=== PATIENT | female | born 1960 | race Caucasian/White ===

== ENCOUNTER 2017-09-08 11:57 | Emergency (ER) | payer SELFPAY ==
--- NOTE | 2017-09-08 12:08 | EDM.PDOCBH ---
ED HPI GENERAL MEDICAL PROBLEM - General Chief Complaint: Behavioral/Psych Stated Complaint: SUICIDAL Time Seen by Provider: 09/08/17 12:01 Source of Information: Reports: Patient, EMS - History of Present Illness INITIAL COMMENTS - FREE TEXT/NARRATIVE: HISTORY AND PHYSICAL: History of present illness: [Nadine is a 56-year-old female arrived to the ED via EMS here for suicidal thoughts. She reports she was on the train from [place] to [place] when she told someone on the train 2 hours ago that she was having a lot of anxiety and depression. She reportedly told the EMS she wanted to jump in front of the train. Patient reported to me that she does not want to live. She has had past suicidal attempts including overdose and cutting. She states she was in [place] at a [facility] treatment facility for her anxiety and depression. She states she was taken off of all of her medications and was being transferred to a treatment facility in [place]. This along with her not wanting to go to [place] is what she reports triggered her suicidal thoughts. She states she has no family support at this time, her mom and brother live near [place], [place]. She denies any chest pain/pressure, abdominal pain, headache, dizziness, dyspnea.] Review of systems: As per history of present illness and below otherwise all systems reviewed and negative. Past medical history: As per history of present illness and as reviewed below otherwise noncontributory. Surgical history: As per history of present illness and as reviewed below otherwise noncontributory. Social history: No reported history of drug or alcohol abuse. Family history: As per history of present illness and as reviewed below otherwise noncontributory. Physical exam: General: patient is tearful HEENT: Atraumatic, normocephalic, pupils reactive, negative for conjunctival pallor or scleral icterus, mucous membranes moist, throat clear, neck supple, nontender, trachea midline. Lungs: Clear to auscultation, breath sounds equal bilaterally, chest nontender. Heart: S1S2, regular, negative for clicks, rubs, or JVD. Abdomen: Soft, nondistended, nontender. Negative for masses or hepatosplenomegaly. Negative for costovertebral tenderness. Pelvis: Stable nontender. Genitourinary: Deferred. Rectal: Deferred. Extremities: Atraumatic, negative for cords or calf pain. Neurovascular unremarkable. Neuro: Awake, alert, oriented. Cranial nerves II through XII unremarkable. Cerebellum unremarkable. Motor and sensory unremarkable throughout. Exam nonfocal. Notes: Consulted with Dr. Murillo, psych, in [place]. Patient accepted for inpatient psych evaluation. Diagnostics: [CBC, CMP, UA, urine hCG, urine drug screen, ] Therapeutics: [Tylenol] Impression: [Suicidal ideation with a plan] Plan: [Patient transferred via ground ambulance to [facility].] Definitive disposition and diagnosis as appropriate pending reevaluation and review of above. Onset: Today ED ROS GENERAL - Review of Systems Review Of Systems: ROS reveals no pertinent complaints other than HPI. ED EXAM, BEHAVIORAL HEALTH - Physical Exam Exam: See Below (see dictation) COURSE, BEHAVIORAL HEALTH COMP - Course Vital Signs: Last Vital Signs Temp 36.6 C 09/08/17 11:59 Pulse 68 09/08/17 11:59 Resp 20 09/08/17 11:59 BP 122/78 09/08/17 11:59 Pulse Ox 98 09/08/17 11:59 Orders, Labs, Meds: Active Orders 24 hr Category Date Time Status DRUG SCREEN, URINE [URCHEM] Stat Lab 09/08/17 12:10 Ordered HCG QUALITATIVE,URINE [URCHEM] Stat Lab 09/08/17 12:10 Ordered UA W/MICROSCOPIC [URIN] Stat Lab 09/08/17 12:10 Ordered Laboratory Tests 09/08/17 09/08/17 09/08/17 Range/Units 12:10 12:10 12:10 WBC (4.0-11.0) K/uL RBC (4.30-5.90) M/uL Hgb (12.0-16.0) g/dL Hct (36.0-46.0) % MCV (80.0-98.0) fL MCH (27.0-32.0) pg MCHC (31.0-37.0) g/dL RDW Std Deviation (28.0-62.0) fl RDW Coeff of [place] (11.0-15.0) % Plt Count (150-400) K/uL MPV (7.40-12.00) fL Neut % (Auto) (48.0-80.0) % Lymph % (Auto) (16.0-40.0) % [place] % (Auto) (0.0-15.0) % Eos % (Auto) (0.0-7.0) % Baso % (Auto) (0.0-1.5) % Neut # (Auto) (1.4-5.7) K/uL Lymph # (Auto) (0.6-2.4) K/uL Preston # (Auto) (0.0-0.8) K/uL Eos # (Auto) (0.0-0.7) K/uL Baso # (Auto) (0.0-0.1) K/uL Nucleated RBC % /100WBC Nucleated RBCs # K/uL Sodium (136-145) mmol/L Potassium (3.5-5.1) mmol/L Chloride (98-107) mmol/L Carbon Dioxide (21.0-32.0) mmol/L BUN (7.0-18.0) mg/dL Creatinine (0.6-1.0) mg/dL Est Cr Clr Drug Dosing Estimated GFR (MDRD) ml/min Glucose (74-106) mg/dL Calcium (8.5-10.1) mg/dL Total Bilirubin (0.2-1.0) mg/dL AST (15-37) IU/L ALT (14-63) IU/L Alkaline Phosphatase (46-116) U/L Troponin I (0.000-0.056) ng/mL Total Protein (6.4-8.2) g/dL Albumin (3.4-5.0) g/dL Globulin (2.0-3.5) g/dL Albumin/Globulin Ratio (1.3-2.8) TSH 3rd Generation (0.36-3.74) uIU/mL Urine Color YELLOW Urine Appearance SLT CLOUDY Urine pH 6.0 (5.0-8.0) Ur Specific [place] 1.020 (1.001-1.035) Urine Protein NEGATIVE (NEGATIVE) mg/dL Urine Glucose (UA) NEGATIVE (NEGATIVE) mg/dL Urine Ketones NEGATIVE (NEGATIVE) mg/dL Urine Occult Blood TRACE-INTACT (NEGATIVE) Urine Nitrite NEGATIVE (NEGATIVE) Urine Bilirubin NEGATIVE (NEGATIVE) Urine Urobilinogen 0.2 (<2.0) EU/dL Ur Leukocyte Esterase MODERATE (NEGATIVE) Urine RBC 0-2 (0-2/HPF) Urine WBC 3-5 (0-5/HPF) Ur Epithelial Cells FEW (NONE-FEW) Calcium Oxalate Crystal FEW (NEGATIVE) Urine Bacteria FEW (NEGATIVE) Urine Mucus LIGHT (NONE-MOD) Urine HCG, Qual NEGATIVE (NEGATIVE) Urine Opiates Screen NEGATIVE (NEGATIVE) Ur Oxycodone Screen NEGATIVE (NEGATIVE) Urine Methadone Screen NEGATIVE (NEGATIVE) Acetaminophen ug/mL Ur Barbiturates Screen NEGATIVE (NEGATIVE) Ur Phencyclidine Scrn NEGATIVE (NEGATIVE) Ur Amphetamine Screen NEGATIVE (NEGATIVE) U Methamphetamines Scrn NEGATIVE (NEGATIVE) U Benzodiazepines Scrn NEGATIVE (NEGATIVE) U Cocaine Metab Screen NEGATIVE (NEGATIVE) U Marijuana (THC) Screen NEGATIVE (NEGATIVE) Ethyl Alcohol mg/dL 09/08/17 09/08/17 Range/Units 12:20 12:20 WBC 9.93 (4.0-11.0) K/uL RBC 4.69 (4.30-5.90) M/uL Hgb 14.3 (12.0-16.0) g/dL Hct 40.4 (36.0-46.0) % MCV 86.1 (80.0-98.0) fL MCH 30.5 (27.0-32.0) pg MCHC 35.4 (31.0-37.0) g/dL RDW Std Deviation 41.4 (28.0-62.0) fl RDW Coeff of [place] 13 (11.0-15.0) % Plt Count 249 (150-400) K/uL MPV 9.90 (7.40-12.00) fL Neut % (Auto) 76.4 (48.0-80.0) % Lymph % (Auto) 15.8 L (16.0-40.0) % [place] % (Auto) 6.7 (0.0-15.0) % Eos % (Auto) 0.8 (0.0-7.0) % Baso % (Auto) 0.3 (0.0-1.5) % Neut # (Auto) 7.6 H (1.4-5.7) K/uL Lymph # (Auto) 1.6 (0.6-2.4) K/uL Preston # (Auto) 0.7 (0.0-0.8) K/uL Eos # (Auto) 0.1 (0.0-0.7) K/uL Baso # (Auto) 0.0 (0.0-0.1) K/uL Nucleated RBC % 0.0 /100WBC Nucleated RBCs # 0 K/uL Sodium 140 (136-145) mmol/L Potassium 3.8 (3.5-5.1) mmol/L Chloride 105 (98-107) mmol/L Carbon Dioxide 28.6 (21.0-32.0) mmol/L BUN 13 (7.0-18.0) mg/dL Creatinine 0.8 (0.6-1.0) mg/dL Est Cr Clr Drug Dosing TNP Estimated GFR (MDRD) > 60.0 ml/min Glucose 107 H (74-106) mg/dL Calcium 9.3 (8.5-10.1) mg/dL Total Bilirubin 0.5 (0.2-1.0) mg/dL AST 12 L (15-37) IU/L ALT 19 (14-63) IU/L Alkaline Phosphatase 74 (46-116) U/L Troponin I < 0.050 (0.000-0.056) ng/mL Total Protein 7.2 (6.4-8.2) g/dL Albumin 3.7 (3.4-5.0) g/dL Globulin 3.5 (2.0-3.5) g/dL Albumin/Globulin Ratio 1.1 L (1.3-2.8) TSH 3rd Generation 1.59 (0.36-3.74) uIU/mL Urine Color Urine Appearance Urine pH (5.0-8.0) Ur Specific [place] (1.001-1.035) Urine Protein (NEGATIVE) mg/dL Urine Glucose (UA) (NEGATIVE) mg/dL Urine Ketones (NEGATIVE) mg/dL Urine Occult Blood (NEGATIVE) Urine Nitrite (NEGATIVE) Urine Bilirubin (NEGATIVE) Urine Urobilinogen (<2.0) EU/dL Ur Leukocyte Esterase (NEGATIVE) Urine RBC (0-2/HPF) Urine WBC (0-5/HPF) Ur Epithelial Cells (NONE-FEW) Calcium Oxalate Crystal (NEGATIVE) Urine Bacteria (NEGATIVE) Urine Mucus (NONE-MOD) Urine HCG, Qual (NEGATIVE) Urine Opiates Screen (NEGATIVE) Ur Oxycodone Screen (NEGATIVE) Urine Methadone Screen (NEGATIVE) Acetaminophen < 2.0 ug/mL Ur Barbiturates Screen (NEGATIVE) Ur Phencyclidine Scrn (NEGATIVE) Ur Amphetamine Screen (NEGATIVE) U Methamphetamines Scrn (NEGATIVE) U Benzodiazepines Scrn (NEGATIVE) U Cocaine Metab Screen (NEGATIVE) U Marijuana (THC) Screen (NEGATIVE) Ethyl Alcohol < 3.0 mg/dL Medications Discontinued Medications Generic Name Dose Route Start Last Admin Trade Name Freq PRN Reason Stop Dose Admin Acetaminophen 1,000 mg 09/08/17 12:35 09/08/17 12:36 Tylenol Extra Strength PO 09/08/17 12:36 1,000 mg ONETIME ONE Administration Acetaminophen Confirm 09/08/17 12:34 09/08/17 12:40 Tylenol Extra Strength Administered 09/08/17 12:35 Not Given Dose 1,000 mg .ROUTE .STK-MED ONE Departure - Departure Time of Disposition: 13:41 Disposition: DC/Tfer to Psych Hosp/Unit 65 Condition: Good (Rosalievandana Espinal) Clinical Impression: Suicidal ideation - Discharge Information Forms: ED Department Discharge - My Orders Last 24 Hours: My Active Orders 09/08/17 12:10 DRUG SCREEN, URINE [URCHEM] Stat HCG QUALITATIVE,URINE [URCHEM] Stat UA W/MICROSCOPIC [URIN] Stat - Assessment/Plan Last 24 Hours: My Active Orders 09/08/17 12:10 DRUG SCREEN, URINE [URCHEM] Stat HCG QUALITATIVE,URINE [URCHEM] Stat UA W/MICROSCOPIC [URIN] Stat
--- NOTE | 2017-09-08 12:29 | CR ---
EXAMINATION: Portable chest radiograph. HISTORY: Behavioral. FINDINGS: The trachea is midline. The cardiomediastinal silhouette is within normal limits. No pulmonary infilt rates, effusions or pneumothorax. Minimal left basilar atelectasis. Osseous structures appear unremarkable. IMPRESSION: No acute cardiopulmonary process.
[2017-09-08] MEDS ORDERED: Acetaminophen 500 MG Tab ONE (12:34)
[2017-09-08] MEDS ORDERED: Acetaminophen 500 MG Tab PO ONE (12:35)
[2017-09-08 12:54] LABS: ACETAMINOPHEN < 2.0 ug/mL
[2017-09-08 13:01] LABS: CHLORIDE,CL 105 mmol/L (98-107); SODIUM,NA 140 mmol/L (136-145)
== END 2017-09-08 14:25 ==
LOC: MW.ED 11:57
DX: R45.851 Suicidal ideations (principal)
CPT/HCPCS: 36415; 71045; 80053; 80305; 81001; 81025; 84443; 84484; 85025; 99285; A9270; G0480